=== PATIENT | male | born 1945 | race Caucasian/White ===

== ENCOUNTER 2016-09-17 08:55 | Outpatient (CLI) | payer MEDICARE, OTHER | END 2016-09-17 08:56 | disposition home or self-care (01) | DX: R63.4 Abnormal weight loss (principal); E03.9 Hypothyroidism, unspecified; D50.8 Other iron deficiency anemias; J44.9 Chronic obstructive pulmonary disease, unspecified | CPT/HCPCS: 36415; 80053; 80061; 84443; 85025; G0103 ==

== ENCOUNTER 2017-01-21 08:47 | Outpatient (CLI) | payer MEDICARE, OTHER | END 2017-01-21 08:48 | disposition home or self-care (01) | LOC: LAB.F 08:47 | PROVIDERS: ATTEND Nurse Practitioner Family | DX: R60.0 Localized edema (principal) | CPT/HCPCS: 36415; 85379 ==

== ENCOUNTER 2017-01-21 20:51 | Outpatient (CLI) | payer MEDICARE, OTHER ==
--- NOTE | 2017-01-22 00:24 | Ultrasound Preliminary Report ---
Exam: US Duplex Ext Veins Right IMPRESSION: 1. No evidence for deep venous thrombosis. 2. Superficial thrombosis in the popliteal fossa. RADIA The call report notification system was initiated by Dr. Abiodun Judge at 23:31 hrs on 01/21/17. The above findings were discussed with Provider Drafter (Cad) Electrical by Dr. Abiodun Judge at 00:22 hrs on 7. SITE ID: [id number]
--- NOTE | 2017-01-22 00:26 | Ultrasound Report ---
EXAM: RIGHT LOWER EXTREMITY VENOUS ULTRASOUND EXAM DATE: 01/21/2017 10:13 PM. CLINICAL HISTORY: EDEMA OF LOWER LEG. COMPARISON: None. TECHNIQUE: Real-time sonographic vascular imaging was performed by the silk screener through the lower extremity utilizing both color-flow and Doppler spectral analysis. Multiple fundraising sale representative static pura ges were saved for review. FINDINGS: Common Femoral Vein (CFV): Normal. CFV-GSV Junction: Normal. Profunda Femoral Vein (PFV): Normal. Femoral Vein (FV) Prox: Normal. Femoral Vein (FV) Mid: Normal. Femoral Vein (FV) Dist: Normal. Popliteal Vein: Normal. Posterior Tibial Veins: Normal. Peroneal Veins: Normal. Other: Superficial venous thrombosis in the popliteal fossa. IMPRESSION: 1. No evidence for deep venous thrombosis. 2. Superficial thrombosis in the popliteal fossa. RADIA The call report notification system was initiated by Dr. Abiodun Judge at 23:31 hrs on 01/21/17. The above findings were discussed with Provider Briar Wood Sorter by Dr. Abiodun Judge at 00:22 hrs on 7. Referring Provider Line: [phone] SITE ID: [id number]
== END 2017-01-21 20:52 | disposition home or self-care (01) ==
LOC: DI 20:51
PROVIDERS: ATTEND Nurse Practitioner Family
DX: I82.811 Embolism and thrombosis of superficial veins of right lower extremity (principal); R60.0 Localized edema
CPT/HCPCS: 36415; 85379

== ENCOUNTER 2017-01-22 13:52 | Outpatient (CLI) | payer MEDICARE, OTHER ==
[2017-01-22 18:36] LABS: BASOPHILS # (AUTO) 0.1 10^3/uL (0.0-0.1); BASOPHILS % (AUTO) 1.2 %; EOSINOPHILS # (AUTO) 0.4 10^3/uL (0.0-0.7); HGB - HEMOGLOBIN 13.7 g/dL (14.0-18.0); LYMPHOCYTES # (AUTO) 1.7 10^3/uL (1.5-3.5); LYMPHOCYTES % (AUTO) 36.4 %; MEAN CORPUSCULAR HGB CONC 33.5 g/dL (32.0-36.0); MEAN CORPUSCULAR VOLUME 98.4 fL (80.0-94.0); MEAN PLATELET VOLUME 8.8 fL (7.4-11.4); MONOCYTES # (AUTO) 0.4 10^3/uL (0.0-1.0); MONOCYTES % (AUTO) 8.2 %; NEUTROPHILS # (AUTO) 2.1 10^3/uL (1.5-6.6); NEUTROPHILS % (AUTO) 45.2 %; NUCLEATED RED BLOOD CELLS AUTO 0.1 /100WBC; RED BLOOD COUNT 4.17 10^6/uL (4.70-6.10); RED CELL DISTRIBUTION WIDTH 14.1 % (12.0-15.0); UNCORRECTED WHITE BLOOD COUNT 4.7 x10^3/uL; WHITE BLOOD COUNT 4.7 x10^3/uL (4.8-10.8)
[2017-01-22 18:50] LABS: ALBUMIN/GLOBULIN RATIO 1.3 (1.0-2.2); BILIRUBIN,TOTAL 0.6 mg/dL (0.2-1.0); CALCIUM 9.3 mg/dL (8.5-10.3); CREATININE 0.8 mg/dL (0.6-1.2); POTASSIUM 4.1 mmol/L (3.5-5.0); TOTAL PROTEIN 6.8 g/dL (6.7-8.2)
== END 2017-01-22 13:53 | disposition home or self-care (01) ==
LOC: LAB.F 13:52
PROVIDERS: ATTEND Nurse Practitioner Family
DX: I80.2 Phlebitis and thrombophlebitis of other and unspecified deep vessels of lower extremities (principal)
CPT/HCPCS: 36415; 80053; 85025

== ENCOUNTER 2017-01-22 15:46 | Outpatient (CLI) | payer MEDICARE, OTHER ==
--- NOTE | 2017-01-23 12:27 | XRAY Report ---
CHEST, PA AND LATERAL: 01/22/2017 CLINICAL HISTORY: Patient has emphysema and popliteal vein thrombosis. FINDINGS: The bony thorax demonstrates mild anterior spurring in the lower T-spine. Normal cardiac size is seen with vascular calcification in the aortic arch. There is a prominent air-fluid level seen in the inferior mediastinum along its left side consistent with a large hiatal hernia. This could be a paraesophageal hiatal hernia. Emphysema is noted with a moderate amount of pulmonary hyperaeration. Some peribronchial thickening is noted in the lower lobes, consistent with mild chronic bronchitis. IMPRESSION: 1. SIGNIFICANT EMPHYSEMA. 2. LARGE HIATAL HERNIA IS NOTED IN THE INFERIOR ASPECT OF THE LEFT SIDE OF THE MEDIASTINUM. THIS MA Y REPRESENT A PARAESOPHAGEAL HIATAL HERNIA. JOB #: [id number] EXT JOB #:[id number]
== END 2017-01-22 15:47 | disposition home or self-care (01) ==
LOC: DI.S 15:46
PROVIDERS: ATTEND Nurse Practitioner Family
DX: J43.9 Emphysema, unspecified (principal); I80.2 Phlebitis and thrombophlebitis of other and unspecified deep vessels of lower extremities; F17.209 Nicotine dependence, unspecified, with unspecified nicotine-induced disorders; K44.9 Diaphragmatic hernia without obstruction or gangrene
CPT/HCPCS: 36415; 71020; 80053; 85025

== ENCOUNTER 2017-09-10 11:16 | Outpatient (CLI) | payer MEDICARE, OTHER ==
--- NOTE | 2017-09-10 14:34 | XRAY Report ---
FOUR VIEW RIGHT KNEE: 09/10/2017 CLINICAL INDICATION: Osteoarthritis. FINDINGS: AP, lateral, bilateral oblique views of the right knee demonstrate mild osteoarthritis. There is no evidence of acute fracture or dislocation. No effusion is present. IMPRESSION: MILD OSTEOARTHRITIS. TD: 09/10/2017 14:33
== END 2017-09-10 11:17 | disposition home or self-care (01) ==
LOC: DI.S 11:16
PROVIDERS: ATTEND Nurse Practitioner Family
DX: M17.11 Unilateral primary osteoarthritis, right knee (principal)

== ENCOUNTER 2018-05-04 08:35 | Outpatient (CLI) | payer MEDICARE, OTHER ==
[2018-05-04 17:21] LABS: BASOPHILS % (AUTO) 0.9 %; EOSINOPHILS # (AUTO) 0.5 10^3/uL (0.0-0.7); EOSINOPHILS % (AUTO) 10.7 %; HGB - HEMOGLOBIN 14.7 g/dL (14.0-18.0); LYMPHOCYTES # (AUTO) 1.9 10^3/uL (1.5-3.5); LYMPHOCYTES % (AUTO) 36.7 %; MEAN CORPUSCULAR HEMOGLOBIN 32.3 pg (27.0-31.0); MEAN CORPUSCULAR HGB CONC 33.5 g/dL (32.0-36.0); MEAN CORPUSCULAR VOLUME 96.3 fL (80.0-94.0); MEAN PLATELET VOLUME 8.7 fL (7.4-11.4); MONOCYTES # (AUTO) 0.5 10^3/uL (0.0-1.0); MONOCYTES % (AUTO) 10.2 %; NEUTROPHILS # (AUTO) 2.1 10^3/uL (1.5-6.6); NEUTROPHILS % (AUTO) 41.5 %; PLT - PLATELET COUNT 197 10^3/uL (130-450); RED BLOOD COUNT 4.56 10^6/uL (4.70-6.10); RED CELL DISTRIBUTION WIDTH 14.3 % (12.0-15.0); WHITE BLOOD COUNT 5.1 x10^3/uL (4.8-10.8)
[2018-05-04 17:53] LABS: ALBUMIN/GLOBULIN RATIO 1.3 (1.0-2.2); ALKALINE PHOSPHATASE 49 IU/L (42-121); ALT ALANINE AMINOTRANSFERASE 25 IU/L (10-60); AST ASPARTATE AMINOTRANSFERASE 24 IU/L (10-42); BUN - BLOOD UREA NITROGEN 21 mg/dL (6-20); CALCIUM 9.2 mg/dL (8.5-10.3); CARBON DIOXIDE - CO2 30 mmol/L (21-32); CHLORIDE 103 mmol/L (101-111); CHOL/HDL RATIO 2.9 (<5.0); CHOLESTEROL 214 mg/dL; CREATININE 0.8 mg/dL (0.6-1.2); GFR - MDRD 95 (>89); GLUCOSE 93 mg/dL (70-100); HDL CHOLESTEROL 74 mg/dL; LDL CHOLESTEROL,CALCULATED 128 mg/dL; LDL/HDL RATIO 1.7 (<3.6); SODIUM 140 mmol/L (135-145); TOTAL PROTEIN 7.2 g/dL (6.7-8.2); VLDL CHOLESTEROL 12 mg/dL
== END 2018-05-04 23:59 | disposition home or self-care (01) ==
LOC: LAB.S 08:35
PROVIDERS: ATTEND Nurse Practitioner Family
DX: R63.4 Abnormal weight loss (principal); Z13.220 Encounter for screening for lipoid disorders; Z12.5 Encounter for screening for malignant neoplasm of prostate; E03.9 Hypothyroidism, unspecified
CPT/HCPCS: 36415; 80053; 80061; 84443; 85025; G0103; 83721; 84153

== ENCOUNTER 2018-09-07 08:00 | Outpatient (CLI) | payer MEDICARE, OTHER ==
[2018-09-07 18:33] LABS: THYROID STIMULATING HORMONE 2.72 uIU/mL (0.34-5.60)
[2018-09-07 18:35] LABS: FREE T4 (FREE THYROXINE) 1.15 ng/dL (0.58-1.64)
== END 2018-09-07 23:59 | disposition home or self-care (01) ==
LOC: LAB.S 08:00
PROVIDERS: ATTEND Nurse Practitioner Family
DX: E03.9 Hypothyroidism, unspecified (principal)
CPT/HCPCS: 36415; 84439; 84443

== ENCOUNTER 2019-02-08 09:28 | Outpatient (CLI) | payer MEDICARE, OTHER ==
--- NOTE | 2019-02-10 08:28 | CT Report ---
Reason: PERSONAL HISTORY OF TOBACCO USE Procedure Date: 02/08/2019 Accession Number: [id number] / [id number] Procedure: CT - Low Dose Lung Cancer Screen CPT Code: FULL RESULT: EXAM CT LUNG SCREEN EXAM DATE: 02/08/2019 09:50 AM. HISTORY: 73-year-old patient with [id number] smoking history, active smoker. COMPARISON: None. TECHNIQUE: CT examination of the entire thorax without contrast was performed using low-dose technique. Thin section coronal, axial, sagittal and MIP axial images were obtained. In accordance with CT protocol optimization, one or more of the following dose reduction techniques were utilized for this exam: automated exposure control, adjustment of mA and/or KV based on patient size, or use of iterative reconstructive technique. FINDINGS: Nodules: Right upper lobe: 2 mm subpleural solid (49/4). 2 mm solid (98). 2 mm solid (97). 2 mm solid (64). Right middle lobe: None. Right lower lobe: 5 mm perifissual triangular solid (156). Left upper lobe: 2 mm solid subpleural (64). Left lower lobe: 3 mm subpleural solid (77). 3 x 4 mm solid (167). Triangular solid subpleural basilar 6 x 8 mm (192). Emphysema: Moderate emphysema with lower lobe predominance. Pleura: Bibasilar pleural parenchymal scarring. No pleural effusion. Small right Bochdalek hernia. Thoracic Aorta: Tortuous aorta. Scattered calcified plaques. No aneurysm. Mediastinum: No cardiomegaly or pericardial effusion. No pathologically enlarged mediastinal or hilar nodes. Prominent hiatus hernia with intrathoracic stomach and herniation of mid/distal transverse colon. Coronary calcifications: None. Other pulmonary findings: Diffuse bronchial wall thickening. Irregular fibrotic scarring and possible subpleural atelectasis, most notable in the lung bases. Other extrapulmonary findings: Nonspecific mild bilateral adrenal thickening, without obviously suspicious nodule. Scoliosis and degenerative changes of the spine. Mild chronic compression deformity L1, L2, and L3 superior endplates. IMPRESSION: Lung-RADS ASSESSMENT CATEGORY: 3 - Probably benign. Probability of malignancy: 1-2%. RECOMMENDATION: 6 month follow-up with LDCT per ACR Lung-RADS Version 1.1 guidelines. RADIA
== END 2019-02-08 09:29 | disposition home or self-care (01) ==
LOC: DI 09:28
PROVIDERS: ATTEND Internal Medicine
DX: Z12.2 Encounter for screening for malignant neoplasm of respiratory organs (principal); Z87.891 Personal history of nicotine dependence

== ENCOUNTER 2019-07-23 08:55 | Outpatient (CLI) | payer MEDICARE, OTHER ==
[2019-07-23 18:07] LABS: ALBUMIN/GLOBULIN RATIO 1.3 (1.0-2.2); ALKALINE PHOSPHATASE 42 IU/L (42-121); ALT ALANINE AMINOTRANSFERASE 27 IU/L (10-60); AST ASPARTATE AMINOTRANSFERASE 27 IU/L (10-42); BILIRUBIN,TOTAL 0.9 mg/dL (0.2-1.0); BUN - BLOOD UREA NITROGEN 22 mg/dL (6-20); CALCIUM 9.5 mg/dL (8.5-10.3); CARBON DIOXIDE - CO2 29 mmol/L (21-32); CHLORIDE 103 mmol/L (101-111); CHOL/HDL RATIO 2.5 (<5.0); CHOLESTEROL 216 mg/dL; CREATININE 0.8 mg/dL (0.6-1.2); GFR - MDRD 95 (>89); GLUCOSE 96 mg/dL (70-100); HDL CHOLESTEROL 87 mg/dL; LDL CHOLESTEROL,CALCULATED 119 mg/dL; LDL/HDL RATIO 1.4 (<3.6); SODIUM 140 mmol/L (135-145); TOTAL PROTEIN 7.2 g/dL (6.7-8.2); VLDL CHOLESTEROL 10 mg/dL
[2019-07-23 18:27] LABS: HB2 TOTAL 14.6 g/dL; HEMOGLOBIN A1C 0.56 g/dL; HEMOGLOBIN A1C % 5.7 % (4.6-6.2)
== END 2019-07-23 08:56 | disposition home or self-care (01) ==
LOC: LAB.S 08:55
PROVIDERS: ATTEND Internal Medicine
DX: E03.9 Hypothyroidism, unspecified (principal); Z91.89 Other specified personal risk factors, not elsewhere classified
CPT/HCPCS: 36415; 80053; 80061; 83036; 83721; 84443

== ENCOUNTER 2019-11-09 09:32 | Outpatient (CLI) | payer MEDICARE, OTHER ==
--- NOTE | 2019-11-09 18:49 | CT Report ---
Reason: PULMONARY NODULE Procedure Date: 11/09/2019 Accession Number: [id number] / [id number] Procedure: CT - CHEST WO CPT Code: Final Report FULL RESULT: EXAM: CT CHEST EXAM DATE: 11/09/2019 09:48 AM. CLINICAL HISTORY: PULMONARY NODULE. COMPARISONS: CHEST SCREEN LOW DOSE W/O 02/08/2019 9:41 AM. TECHNIQUE: Routine helical CT imaging was performed through the chest. IV contrast: None. Reconstructions: Coronal and sagittal. In accordance with CT protocol optimization, one or more of the following dose reduction techniques were utilized for this exam: automated exposure control, adjustment of mA and/or KV based on patient size, or use of iterative reconstructive technique. FINDINGS: Lungs/Pleura: Multiple pulmonary nodules redemonstrated as follows: (Series 4, image 103) juxtapleural right upper lobe 2 mm, previously 2 mm, pulmonary nodule. (Series 4, image 203) juxtapleural right upper lobe 2 mm, previously 2 mm, pulmonary nodule. (Series 4, image 133) juxtapleural right upper lobe 2 mm, previously 2 mm, pulmonary nodule. The triangular density within the right major fissure likely represents a pleural lymph node and is of no clinical significance (series 4, image 327). (Series 4, image 130) juxtapleural left upper lobe 2 mm, previously 2 mm pulmonary nodule. The previously seen triangular pleural density in the left lower lobe (series 4, image 157) likely represents a pleural lymph node and is of no clinical significance. (Series 4, image 346) there is a juxtapleural left lower lobe 4 mm, previously 4 mm pulmonary nodule. Triangular density within the pleura of the left lower lobe measuring 7 mm, previously 7 mm, on (series 4, image 393) likely represents a pleural lymph node and is of no clinical significance since. No new pulmonary nodules or masses. Mediastinum: Large hiatal hernia containing a loop of bowel and a large portion of the stomach. Bones: Unremarkable. Visualized Abdomen: Multiple simple appearing cystic structures in the liver measuring up to 4.4 cm. Other: None. IMPRESSION: 1. Multiple bilateral pulmonary nodules and pleural lymph nodes are stable in size with no new pulmonary nodules or masses. Continued yearly low dose chest CT screening recommended. 2. No lymphadenopathy. 3. Large hiatal hernia containing a loop of nonobstructed bowel and a majority of the stomach. RADIA
== END 2019-11-09 09:33 | disposition home or self-care (01) ==
LOC: DI 09:32
PROVIDERS: ATTEND Internal Medicine
DX: R91.8 Other nonspecific abnormal finding of lung field (principal); K44.9 Diaphragmatic hernia without obstruction or gangrene
CPT/HCPCS: 71250

== ENCOUNTER 2020-07-18 09:23 | Outpatient (CLI) | payer MEDICARE, OTHER ==
[2020-07-18 16:02] LABS: ALBUMIN/GLOBULIN RATIO 1.5 (1.0-2.2); ALKALINE PHOSPHATASE 42 IU/L (42-121); ALT ALANINE AMINOTRANSFERASE 23 IU/L (10-60); AST ASPARTATE AMINOTRANSFERASE 25 IU/L (10-42); BILIRUBIN,TOTAL 0.7 mg/dL (0.2-1.0); BUN - BLOOD UREA NITROGEN 23 mg/dL (6-20); CALCIUM 9.3 mg/dL (8.5-10.3); CARBON DIOXIDE - CO2 28 mmol/L (21-32); CHLORIDE 104 mmol/L (101-111); CHOL/HDL RATIO 2.9 (<5.0); CHOLESTEROL 221 mg/dL; CREATININE 0.9 mg/dL (0.6-1.2); GLUCOSE 99 mg/dL (70-100); HDL CHOLESTEROL 77 mg/dL; LDL CHOLESTEROL,CALCULATED 136 mg/dL; LDL/HDL RATIO 1.8 (<3.6); SODIUM 140 mmol/L (135-145); TOTAL PROTEIN 6.7 g/dL (6.7-8.2); VLDL CHOLESTEROL 8 mg/dL
== END 2020-07-18 09:24 | disposition home or self-care (01) ==
LOC: LAB.S 09:23
PROVIDERS: ATTEND Internal Medicine
DX: Z00.00 Encounter for general adult medical examination without abnormal findings (principal); Z91.89 Other specified personal risk factors, not elsewhere classified; E03.9 Hypothyroidism, unspecified
CPT/HCPCS: 36415; 80053; 80061; 83721; 84153; 84443

== ENCOUNTER 2020-10-23 10:31 | Outpatient (CLI) | payer MEDICARE, OTHER | END 2020-10-23 10:32 | disposition home or self-care (01) | LOC: LAB.S 10:31 | PROVIDERS: ATTEND Family Medicine | DX: E03.9 Hypothyroidism, unspecified (principal) | CPT/HCPCS: 36415; 84443 ==

== ENCOUNTER 2020-11-20 09:23 | Emergency (ER) | payer MEDICARE, OTHER ==
[2020-11-20 09:34] VITALS: BP 162/88
[2020-11-20 10:29] LABS: BILIRUBIN,URINE NEGATIVE (NEGATIVE); GLUCOSE, URINE (UA) NEGATIVE (NEGATIVE); KETONES,URINE (UA) NEGATIVE (NEGATIVE); LEUKOCYTE ESTERASE, URINE NEGATIVE (NEGATIVE); NITRITE,URINE NEGATIVE (NEGATIVE); OCCULT BLOOD,URINE LARGE (NEGATIVE); PROTEIN,URINE NEGATIVE (NEGATIVE); UROBILINOGEN,URINE 0.2 (NORMAL) E.U./dL (NORMAL)
[2020-11-20 10:30] LABS: CLARITY,URINE HAZY (CLEAR)
[2020-11-20 10:38] LABS: BACTERIA,URINE Few /HPF (None Seen); RBC,URINE TNTC /HPF (0-5); SQUAMOUS EPITHELIAL CELL,UR FEW Squamous (<= Few); WBC,URINE 0-3 /HPF (0-3)
--- NOTE | 2020-11-20 10:40 | ED Physician Documentation ---
History of Present Illness - Stated complaint Stated Complaint: MALE - Chief complaint Chief Complaint: Abd Pain - History obtained from History obtained from: Patient - Additonal information Additional information: 75-year-old man with past medical history of kidney stones, hypothyroidism, asthma, BPH, presents with inability to void over the past 14 hours. Patient states he is otherwise been feeling normally. 2 years ago he had a similar episode and was able to urinate after being catheterized. He is requesting again that we catheterized him today and then take the Fleming out. Patient de nies abdominal pain, nausea, fever, back pain, hematuria, dysuria, increased frequency. Review of Systems Ten Systems: 10 systems reviewed and negative Constitutional: denies: Fever, Chills GI: reports: Other (abdominal discomfort (lower abdomen)). denies: Nausea : reports: Unable to Void. denies: Dysuria, Frequency, Hematuria Musculoskeletal: denies: Back pain PD PAST MEDICAL HISTORY - Past Medical History Past Medical History: Yes Cardiovascular: None Respiratory: COPD Neuro: None Endocrine/Autoimmune: HyPOthyroidism GI: None : Retention, Other HEENT: None Psych: None Musculoskeletal: None Derm: None - Past Surgical History Past Surgical History: Yes General: Other HEENT: Detached retina repair - Allergies Allergies/Adverse Reactions: Allergies Allergy/AdvReac Type Severity Reaction Status Date / Time No Known Drug Allergies Allergy Verified 11/20/20 09:31 - Social History Does the pt smoke?: No Smoking Status: Former smoker Does the pt drink ETOH?: Yes Does the pt have substance abuse?: Yes Substance Use and Type: Marijuana - Immunizations Immunizations are current?: Yes PD ED PE NORMAL - Vitals Vital signs reviewed: Yes - General General: Alert and oriented X 3, No acute distress, Well developed/nourished - HEENT HEENT: Atraumatic, PERRL, EOMI - Neck Neck: Supple, no meningeal sign - Cardiac Cardiac: RRR - Respiratory Respiratory: No respiratory distress, Clear bilaterally - Abdomen Abdomen: Non tender, Non distended, Other (palpable fullness in bladder. discomfort to suprapubic palpation) - Derm Derm: Normal color - Extremities Extremities: No deformity Results - Vitals Vitals: Vital Signs - 24 hr 11/20/20 09:32 Temperature 36.6 C Heart Rate 99 Respiratory 18 Rate Blood Pressure 162/88 H O2 Saturation 94 - Labs Labs: Laboratory Tests 11/20/20 10:19 Urine Color YELLOW Urine Clarity HAZY Urine pH 6.0 Ur Specific [place] 1.025 Urine Protein NEGATIVE Urine Glucose (UA) NEGATIVE Urine Ketones NEGATIVE Urine Occult Blood LARGE H Urine Nitrite NEGATIVE Urine Bilirubin NEGATIVE Urine Urobilinogen 0.2 (NORMAL) Ur Leukocyte Esterase NEGATIVE Urine RBC TNTC H Urine WBC 0-3 Ur Squamous Epith Cells FEW Squamous Urine Bacteria Few Urine Culture Comments NOT INDICATED PD MEDICAL DECISION MAKING - ED course ED course: 75-year-old man presented with acute urinary retention. After discussion, he would prefer to do an in and out catheter rather than a Fleming. Strict return precautions given. Patient will follow up with his primary doctor for routine blood work and with urology for work-up of his urinary retention. Departure - Departure Disposition: 01 Home, Self Care Clinical Impression: Hematuria, Urinary retention Condition: Good Instructions: ED Retention Urinary Male Follow-Up: Radha Heath MD [Physician No Access] - Comments: You were seen in the emergency department for urinary retention. A Fleming was placed and drained a significant amount of urine then was removed. Your Urine showed no sign of infection but did show blood. You will need to have further outpatient evaluation by a urologist and may need further testing to evaluate the cause for your urinary retention.Make sure that you follow-up with your primary doctor this week for outpatient blood work. If you are unable to void again for more than 12 hours then please return to the emergency department or urgent care immediately. Make sure that you stay well-hydrated.
== END 2020-11-20 10:57 | disposition home or self-care (01) ==
LOC: ED 09:23
DX: N40.1 Benign prostatic hyperplasia with lower urinary tract symptoms (principal); R33.8 Other retention of urine; R31.9 Hematuria, unspecified; Z87.891 Personal history of nicotine dependence
CPT/HCPCS: 51798; 81001; 87086; 99282; 99283

== ENCOUNTER 2020-12-30 07:08 | Emergency (ER) | payer MEDICARE, OTHER ==
[2020-12-30 07:19] VITALS: BP 152/101
[2020-12-30] MEDS ORDERED: LIDOCAINE 2% URO-JET 5 ML SYRINGE UR STA (07:29)
--- NOTE | 2020-12-30 07:41 | ED Physician Documentation ---
History of Present Illness - Stated complaint Stated Complaint: MALE - Chief complaint Chief Complaint: Abd Pain - History obtained from History obtained from: Patient - History of Present Illness Timing: Last night Pain level max: 9 Pain level now: 9 - Additonal information Additional information: 75-year-old male states that he has been unable to urinate since last night. He is on Flomax. Has had to have a catheter in the past. Nothing makes it better or worse. No fevers. No chills. No recent trauma. Review of Systems Constitutional: denies: Fever, Chills GI: denies: Vomiting Skin: denies: Rash Musculoskeletal: denies: Neck pain, Back pain Neurologic: denies: Headache PD PAST MEDICAL HISTORY - Past Medical History Cardiovascular: None Respiratory: COPD Neuro: None Endocrine/Autoimmune: HyPOthyroidism GI: None : Retention, Other HEENT: None Psych: None Musculoskeletal: None Derm: None - Past Surgical History Past Surgical History: Yes General: Other HEENT: Detached retina repair - Present Medications Home Medications: Ambulatory Orders Medication Instructions Recorded Confirmed Tamsulosin [Flomax] 1 tab PO DAILY 12/30/20 12/30/20 - Allergies Allergies/Adverse Reactions: Allergies Allergy/AdvReac Type Severity Reaction Status Date / Time No Known Drug Allergies Allergy Verified 12/30/20 07:19 - Social History Does the pt smoke?: No Smoking Status: Former smoker Does the pt drink ETOH?: Yes Does the pt have substance abuse?: Yes Substance Use and Type: Marijuana - Immunizations Immunizations are current?: Yes PD ED PE NORMAL - Vitals Vital signs reviewed: Yes - General General: Alert and oriented X 3, No acute distress, Well developed/nourished - HEENT HEENT: Moist mucous membranes - Neck Neck: Supple, no meningeal sign - Cardiac Cardiac: RRR, Strong equal pulses - Respiratory Respiratory: No respiratory distress, Clear bilaterally - Abdomen Abdomen: Soft, Non distended, Other (Tender to palpation suprapubic. No peritoneal signs) - Back Back: No CVA TTP, No spinal TTP - Derm Derm: Warm and dry - Neuro Neuro: Alert and oriented X 3 - Psych Psych: Normal mood, Normal affect Results - Vitals Vitals: Vital Signs - 24 hr 12/30/20 07:13 Temperature 36.7 C Heart Rate 103 H Respiratory 18 Rate Blood Pressure 152/101 H O2 Saturation 95 Oxygen O2 Source Room air - Labs Labs: Laboratory Tests 12/30/20 07:30 Urine Color YELLOW Urine Clarity CLEAR Urine pH 6.0 Ur Specific [place] 1.025 Urine Protein NEGATIVE Urine Glucose (UA) NEGATIVE Urine Ketones NEGATIVE Urine Occult Blood TRACE-INTA Urine Nitrite NEGATIVE Urine Bilirubin NEGATIVE Urine Urobilinogen 0.2 (NORMAL) Ur Leukocyte Esterase NEGATIVE Urine RBC Cancelled Urine WBC Cancelled Urine WBC Clumps Cancelled Ur Epithelial Cells Cancelled Ur Squamous Epith Cells Cancelled Urine Crystals Cancelled Amorphous Sediment Cancelled Urine Bacteria Cancelled Urine Casts Cancelled Urine Starch Cancelled Urine Mucus Cancelled Urine Trichomonas Cancelled Urine Yeast Cancelled Urine Sperm Cancelled Ur Oval Fat Bodies Cancelled Ur Microscopic Review NOT INDICATED Urine Culture Comments NOT INDICATED PD MEDICAL DECISION MAKING - ED course Complexity details: reviewed results, re-evaluated patient, considered differential, d/w patient ED course: Fleming catheter was placed. Patient feels much better. Asymptomatic. No UTI. I will have him continue his Flomax and follow-up with his doctor next week. Catheter left in place with a leg bag. Patient counseled regarding signs and symptoms for which I believe and urgent re-evaluation would be necessary. Patient with good understanding of and agreement to plan and is comfortable going home at this time This document was made in part using voice recognition software. While efforts are made to proofread this document, sound alike and grammatical errors may occur. Departure - Departure Disposition: 01 Home, Self Care Clinical Impression: Acute urinary retention Condition: Good Instructions: ED Catheter Care Fleming Follow-Up: Jazmín Rush ARNP [Primary Care Provider] - Within 1 week Comments: Follow-up with your doctor next week for catheter removal. We will leave the catheter in place until you are seen by your doctor. Return if you worsen
[2020-12-30 07:42] LABS: BILIRUBIN,URINE NEGATIVE (NEGATIVE); GLUCOSE, URINE (UA) NEGATIVE (NEGATIVE); KETONES,URINE (UA) NEGATIVE (NEGATIVE); LEUKOCYTE ESTERASE, URINE NEGATIVE (NEGATIVE); NITRITE,URINE NEGATIVE (NEGATIVE); OCCULT BLOOD,URINE TRACE-INTA (NEGATIVE); PROTEIN,URINE NEGATIVE (NEGATIVE); UROBILINOGEN,URINE 0.2 (NORMAL) E.U./dL (NORMAL)
[2020-12-30 07:52] LABS: CLARITY,URINE CLEAR (CLEAR)
== END 2020-12-30 08:48 | disposition home or self-care (01) ==
LOC: ED 07:08
DX: R33.9 Retention of urine, unspecified (principal); Z87.891 Personal history of nicotine dependence
CPT/HCPCS: 51702; 51798; 81001; 81003; 87086; 99283; 99284

== ENCOUNTER 2021-03-26 08:00 | Outpatient (CLI) | payer MEDICARE, OTHER ==
[2021-03-26 20:04] LABS: BILIRUBIN,URINE NEGATIVE (NEGATIVE); GLUCOSE, URINE (UA) NEGATIVE (NEGATIVE); KETONES,URINE (UA) NEGATIVE (NEGATIVE); LEUKOCYTE ESTERASE, URINE MODERATE (NEGATIVE); NITRITE,URINE NEGATIVE (NEGATIVE); OCCULT BLOOD,URINE LARGE (NEGATIVE); PH,URINE 6.5 PH (5.0-7.5); PROTEIN,URINE 30 mg/dL (NEGATIVE); UROBILINOGEN,URINE 0.2 (NORMAL) E.U./dL (NORMAL)
[2021-03-26 20:06] LABS: BACTERIA,URINE Few /HPF (None Seen); CLARITY,URINE SL. CLOUDY (CLEAR); MUCUS,URINE Few Strands; SQUAMOUS EPITHELIAL CELL,UR FEW Squamous (<= Few)
== END 2021-03-26 23:59 | disposition home or self-care (01) ==
LOC: LAB.S 08:00
PROVIDERS: ATTEND Emergency Medicine
DX: R30.0 Dysuria (principal)
CPT/HCPCS: 81001; 87086

== ENCOUNTER 2021-05-11 13:21 | Outpatient (CLI) | payer MEDICARE, OTHER ==
[2021-05-11 20:08] LABS: GLUCOSE, URINE (UA) NEGATIVE (NEGATIVE); KETONES,URINE (UA) TRACE mg/dL (NEGATIVE); LEUKOCYTE ESTERASE, URINE TRACE (NEGATIVE); NITRITE,URINE POSITIVE (NEGATIVE); OCCULT BLOOD,URINE LARGE (NEGATIVE); PROTEIN,URINE 100 mg/dL (NEGATIVE); UROBILINOGEN,URINE 0.2 (NORMAL) E.U./dL (NORMAL)
[2021-05-11 20:15] LABS: BILIRUBIN,URINE NEGATIVE (NEGATIVE); ICTOTEST,URINE NEGATIVE
[2021-05-11 20:16] LABS: CLARITY,URINE CLOUDY (CLEAR)
[2021-05-11 20:27] LABS: BACTERIA,URINE Few /HPF (None Seen); RBC,URINE TNTC /HPF (0-5); SQUAMOUS EPITHELIAL CELL,UR NONE SEEN (<= Few); YEAST,URINE PRESENT
== END 2021-05-11 13:22 | disposition home or self-care (01) ==
LOC: LAB.S 13:21
PROVIDERS: ATTEND Family Medicine
DX: N39.0 Urinary tract infection, site not specified (principal)
CPT/HCPCS: 81001; 81003; 87086

== ENCOUNTER 2021-08-02 07:42 | Outpatient (CLI) | payer MEDICARE ==
--- NOTE | 2021-08-02 10:51 | Ultrasound Report ---
PROCEDURE: Aorta Screening INDICATIONS: LUNG NODULE, AAA SCREENING TECHNIQUE: Real time scanning was performed of the aorta and iliac arteries, with image documentatio n. COMPARISON: None FINDINGS: Aorta: Proximal aortic diameter measures 2.4 x 2.3 cm. Mid-aorta measures 2.1 x 2.0 cm. Distal aor tic diameter is 2.0 x 2.2 cm. Iliac arteries: Right common iliac artery measures 1.1 x 1.3 cm. Left common iliac artery measures 1.2 x 1.3 cm. Scattered atherosclerotic calcific plaques seen throughout the imaged vessels. IMPRESSION: Atherosclerotic vascular disease of the imaged abdominal aorta and iliac vessels without evidence for aneurysmal dilatation. Reviewed by: Sriram Saldana MD on 08/02/2021 10:50 AM PST Approved by: Sriram Saldana MD on 08/02/2021 10:50 AM PST Station ID: [id number]
--- NOTE | 2021-08-02 11:11 | CT Report ---
PROCEDURE: CHEST WO INDICATIONS: LUNG NODULE, AAA SCREENING TECHNIQUE: Noncontrast 1mm axial images were acquired from the pulmonary apices to the posterior costophrenic an gles. Axial 5 mm soft tissue kernel reconstructions were performed as well as 8 mm axial MIP and cor onal and sagittal 5 mm reformations. For radiation dose reduction, the following was used: automate d exposure control, adjustment of mA and/or kV according to patient size. COMPARISON: 11/09/2019 FINDINGS: Image quality: Diagnostic. Lungs and pleura: No acute air space opacities. Bibasilar atelectasis. Redemonstration of pulmonary emphysematous changes. No pleural effusions or pneumothorax. Central and peripheral airways are sheriff nt and normal in caliber. Stable pleural-based 2 mm peripheral right upper lobe nodule (image 79/series 4). Stable subpleural 2 mm peripheral right upper lobe nodule seen on image 173/series 4. Stable subpleural 2 mm nodule along the periphery of the left upper lobe seen on image image 131/seri es 4. Redemonstration of 4 mm fissural based triangular nodule abutting the right major fissure (image 299/ series 4). Stable 4 mm subpleural posterior left upper lobe nodule seen on image 148/series 4. Stable 4 mm medial juxtapleural nodule in the left lower lobe seen on image 320/series 4. Elsewhere, a few sub-5 mm peripheral nodules are seen which are stable in size, morphology, and numbe r. No new suspicious pulmonary nodules or mass lesions. Mediastinum: Heart size is normal. No pericardial effusion. No mediastinal adenopathy by size crit eria. Thoracic aorta and central pulmonary arteries are normal in size. Atherosclerotic calcificatio ns of the thoracic aorta. No aneurysmal dilatation. Esophagus is normal in caliber. Large hiatal saul ia is again noted which contains a segment of nonobstructed colon as well as a large portion of the s tomach. Bones and chest wall: No suspicious bony lesions. No vertebral body compression fractures. No axil hedy or supraclavicular adenopathy by size criteria. The thyroid is normal in size and there are no incidental findings. Abdomen: Stable appearance of multiple hepatic hypodensities likely representing cysts. Visualized u pper abdominal solid organs and bowel loops appear normal in the absence of contrast. IMPRESSION: 1. Multiple sub-5 mm predominantly subpleural pulmonary nodules in the bilateral hemithoraces appears stable in size, number, and distribution. No new or suspicious pulmonary nodules or masses. 2. Stable appearance of large hiatal hernia which contains a loop of nonobstructive colon and a large portion of the stomach. 3. Atherosclerotic vascular disease. Lung RADS 2: Benign, recommend continued annual screening low dose chest CT. CLINICAL RECOMMENDATION STATEMENTS: In patients <35 years with an ITN detected on CT, MRI, or extrathyroidal ultrasound, the Committee re commends further evaluation with dedicated thyroid ultrasound if the nodule is "e1 cm and has no susp icious imaging features, and if the patient has normal life expectancy. In patients "e35 years with an ITN detected on CT, MRI, or extrathyroidal ultrasound, the Committee r ecommends further evaluation with dedicated thyroid ultrasound if the nodule is "e1.5 cm and has no s uspicious imaging features, and if the patient has normal life expectancy. (ACR, 2014) Reviewed by: Sriram Saldana MD on 08/02/2021 11:10 AM PST Approved by: Sriram Saldana MD on 08/02/2021 11:10 AM PST Station ID: [id number]
== END 2021-08-02 07:43 | disposition home or self-care (01) ==
LOC: DI 07:42
PROVIDERS: ATTEND Family Medicine
DX: Z13.6 Encounter for screening for cardiovascular disorders (principal); R91.8 Other nonspecific abnormal finding of lung field; K44.9 Diaphragmatic hernia without obstruction or gangrene; I70.0 Atherosclerosis of aorta

== ENCOUNTER 2021-12-27 08:00 | Outpatient (CLI) | payer MEDICARE | END 2021-12-27 23:59 | disposition home or self-care (01) | LOC: LAB 08:00 | PROVIDERS: ATTEND Registered Nurse | DX: R31.9 Hematuria, unspecified (principal) | CPT/HCPCS: 87086 ==

== ENCOUNTER 2022-12-30 08:00 | Outpatient (CLI) | payer MEDICARE ==
[2022-12-30 21:00] LABS: BILIRUBIN,URINE NEGATIVE (NEGATIVE); GLUCOSE, URINE (UA) NEGATIVE (NEGATIVE); KETONES,URINE (UA) 15 mg/dL (NEGATIVE); LEUKOCYTE ESTERASE, URINE TRACE (NEGATIVE); NITRITE,URINE NEGATIVE (NEGATIVE); OCCULT BLOOD,URINE MODERATE (NEGATIVE); PH,URINE 5.5 PH (5.0-7.5); PROTEIN,URINE 30 mg/dL (NEGATIVE); UROBILINOGEN,URINE 0.2 (NORMAL) E.U./dL (NORMAL)
[2022-12-30 21:15] LABS: BACTERIA,URINE Few /HPF (None Seen); CLARITY,URINE CLEAR (CLEAR); MUCUS,URINE Few Strands; SQUAMOUS EPITHELIAL CELL,UR RARE Squamous (<= Few); WBC CLUMPS,URINE PRESENT
== END 2022-12-30 23:59 | disposition home or self-care (01) ==
LOC: LAB 08:00
PROVIDERS: ATTEND Physician Assistant Medical
DX: R39.15 Urgency of urination (principal); R31.9 Hematuria, unspecified
CPT/HCPCS: 81001; 87086

== ENCOUNTER 2023-06-14 08:00 | Outpatient (CLI) | payer MEDICARE | END 2023-06-14 23:59 | disposition home or self-care (01) | LOC: LAB.S 08:00 | PROVIDERS: ATTEND Physician Assistant | DX: N39.0 Urinary tract infection, site not specified (principal) | CPT/HCPCS: 87086 ==

== ENCOUNTER 2023-10-16 08:00 | Outpatient (CLI) | payer MEDICARE ==
[2023-10-16 14:25] LABS: BILIRUBIN,URINE NEGATIVE (NEGATIVE); GLUCOSE, URINE (UA) NEGATIVE (NEGATIVE); KETONES,URINE (UA) NEGATIVE (NEGATIVE); LEUKOCYTE ESTERASE, URINE SMALL (NEGATIVE); NITRITE,URINE NEGATIVE (NEGATIVE); OCCULT BLOOD,URINE LARGE (NEGATIVE); PH,URINE 5.5 PH (5.0-7.5); PROTEIN,URINE 30 mg/dL (NEGATIVE); UROBILINOGEN,URINE 0.2 (NORMAL) E.U./dL (NORMAL)
[2023-10-16 14:28] LABS: CLARITY,URINE CLOUDY (CLEAR)
[2023-10-16 15:29] LABS: AMORPHOUS SEDIMENT,UR Moderate /LPF; BACTERIA,URINE Few /HPF (None Seen); SQUAMOUS EPITHELIAL CELL,UR FEW Squamous (<= Few); WBC,URINE >25 /HPF (0-3)
== END 2023-10-16 23:59 | disposition home or self-care (01) ==
LOC: LAB.S 08:00
PROVIDERS: ATTEND Emergency Medicine
DX: N39.0 Urinary tract infection, site not specified (principal)
CPT/HCPCS: 81001; 87086

== ENCOUNTER 2023-12-15 08:46 | Outpatient (CLI) | payer MEDICARE ==
[2023-12-15 09:12] LABS: CREATININE 0.9 mg/dL (0.6-1.3)
[2023-12-15] MEDS ORDERED: GADOTERATE MEGLUMINE 7.5 MMOL/15 ML VIAL ONE (09:34)
[2023-12-15] MEDS: GADOTERATE MEGLUMINE 7.5 MMOL/15 ML VIAL IVP ONE (13:07)
--- NOTE | 2023-12-18 15:22 | MRI Report ---
PROCEDURE: Angio Head W/WO INDICATIONS: ANEURYSM OF ANTERIOR ARTERY CONTRAST: Intravenous contrast is given TECHNIQUE: Axial and Sagittal pre-contrast images were obtained through the head. Sagittal and Axial images wer e obtained after the administration of contrast in the arterial phases, with rotating 3-dimensional m aximum intensity projection (MIP) reformats constructed from subtraction images. COMPARISON: MRI 06/10/2023 FINDINGS: Image quality: Excellent. Anterior circulation: Intracranial internal carotid arteries demonstrate normal size and intraluminal flow signal. Stable small outpouching arising from the right knee, measuring approximately 2 x 3 mm. The flow within the paired anterior cerebral arteries is otherwise normal and symmetric. The flow wi thin the middle cerebral arteries is normal and symmetric. The anterior communicating artery is seen. No stenosis or occlusionsare identified. Posterior circulation: Visualized portions of the vertebral arteries demonstrate normal caliber, and join to form a normal appearing basilar artery. The flow within the posterior cerebral arteries is no rmal and symmetric. No stenosis, occlusions, or aneurysms are identified. 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 Reviewed by: Ermias Magaña MD on 12/18/2023 3:21 PM PDT Approved by: Ermias Magaña MD on 12/18/2023 3:21 PM PDT Station ID: [id number]
== END 2023-12-15 08:47 | disposition home or self-care (01) ==
LOC: DI 08:46
PROVIDERS: ATTEND Physician Assistant
DX: I67.1 Cerebral aneurysm, nonruptured (principal)
CPT/HCPCS: 36415; 82565

== ENCOUNTER 2023-12-31 10:34 | Outpatient (CLI) | payer MEDICARE ==
[2023-12-31 14:56] LABS: BILIRUBIN,URINE NEGATIVE (NEGATIVE); GLUCOSE, URINE (UA) NEGATIVE (NEGATIVE); KETONES,URINE (UA) 15 mg/dL (NEGATIVE); LEUKOCYTE ESTERASE, URINE SMALL (NEGATIVE); NITRITE,URINE NEGATIVE (NEGATIVE); OCCULT BLOOD,URINE MODERATE (NEGATIVE); PH,URINE 5.5 PH (5.0-7.5); PROTEIN,URINE 30 mg/dL (NEGATIVE); UROBILINOGEN,URINE 0.2 (NORMAL) E.U./dL (NORMAL)
[2023-12-31 15:12] LABS: BACTERIA,URINE Few /HPF (None Seen); CLARITY,URINE SL. CLOUDY (CLEAR); MUCUS,URINE Moderate Strands; RBC,URINE 0-5 /HPF (0-5); SQUAMOUS EPITHELIAL CELL,UR FEW Squamous (<= Few); WBC CLUMPS,URINE PRESENT; WBC,URINE >25 /HPF (0-3)
== END 2023-12-31 10:35 | disposition home or self-care (01) ==
LOC: LAB.S 10:34
PROVIDERS: ATTEND Family Medicine
DX: N39.0 Urinary tract infection, site not specified (principal)
CPT/HCPCS: 81001; 87086